=== PATIENT | male | born 1995 | race Caucasian/White ===

== ENCOUNTER 2021-03-27 14:21 | Emergency (ER) | payer OTHER, SELFPAY ==
[2021-03-27 15:00] VITALS: BP 102/60; PULSE 87; RESP 18; TEMP 37.2; O2SAT 96; BMI 22.4
--- NOTE | 2021-03-27 15:26 | ED_ITS ---
HPI - COVID General: Chief Complaint: Fever Stated Complaint: COVID +/FEVER,CHILLS,BODY ACHES Time Seen by Provider: 03/27/21 15:18 Triage information: Has fever, cough or shortness of breath . Exposure to COVID + person last 14 days History of Present Illness: HPI Narrative: Fever chills muscle aches tested positive for Covid home today. MD complaint: known COVID positive and has COVID symptoms Prior covid testing: yes, results known Prior testing date: 03/27/21 COVID 19 common symptoms: positive fever(s), chills, body aches and loss of sense of smell and/or taste; negative non-productive cough, productive cough, dyspnea, headache(s), throat pain, nasal congestion, nausea or vomiting COVID 19 other sytmptoms: negative chest pain Treatment prior to arrival: none COVID Results: No Data to Display Review of Systems Const: Reports: fever(s), chills and body aches Eyes: Denies: change in vision or blurry vision ENMT: Denies: throat pain or nasal congestion Card: Denies: chest pain or dyspnea on exertion Resp: Denies: dyspnea, productive cough or non-productive cough GI: Denies: abdominal pain, nausea or vomiting : Denies: difficulty urinating Musc: Denies: extremity pain Skin/Breast: Denies: rash Neuro: Denies: headache(s) Psych: Denies: anxiety or depression John/Lymph: Denies: easy bruising Physical Exam Const: COMMON NORMALS: no acute distress, average body habitus and patient oriented x3 HENMT: COMMON NORMALS: normocephalic HEAD & SCALP: normal to inspection and normocephalic FACE & SINUS: normal facial exam Eye: COMMON NORMALS: conjunctivae normal GENERAL EYE: appearance normal, both eyes and all related structures CONJUNCTIVA: Yes conjunctivae normal Neck/C-Spine: COMMON NORMALS: no JVD Chest: COMMONS NORMALS: normal inspection of the chest Resp: COMMON NORMALS: normal respiratory effort and clear to auscultation bilaterally AUSCULTATION: clear to auscultation bilaterally Cardio: COMMON NORMALS: no JVD, regular rate and regular rhythm RATE: regular rate RHYTHM: regular rhythm GI: COMMON NORMALS: Normal to inspection, nondistended, normoactive bowel sounds present Extremity: COMMON NORMALS: normal to inspection and full ROM Neuro: COMMON NORMALS: patient oriented x3 Course Vital Signs: Vital signs: Vital Signs Temperature 99.0 F 03/27/21 15:00 Pulse Rate 87 03/27/21 15:00 Respiratory Rate 18 03/27/21 15:00 Blood Pressure 102/60 03/27/21 15:00 Pulse Oximetry 96 03/27/21 15:00 MDM - COVID COVID Results: No Data to Display Discharge Plan Discharge Patient Disposition: Home Clinical Impression: COVID-19 Condition: Stable Prescriptions: New Decadron 6 mg tablet 6 mg PO DAILY Qty: 7 RF: 0 Discharge Orders: Discharge ED (Routine); Ordered 03/27/21 Ordered By: Steve Brandt Referrals: Ryan Caballero MD [Primary Care Provider] - Discharge Diet: Usual diet Discharge Activity: Increase activity as tolerated Patient Instructions: COVID-19 (Coronavirus Disease 2019) (ED) Activity Restrictions/Additional Instructions: Follow-up with medical provider as directed. Take medications as prescribed. Return to the ER or your medical provider if condition worsens. Please read and understand discharge instructions. If any questions ask please. Coding Level of Care Code ED [employer] for Corrine Johnson
[2021-03-27 15:45] VITALS: BP 105/65; PULSE 86; RESP 18; TEMP 37.2; O2SAT 95
[2021-03-27 15:46] VITALS: BP 105/65; PULSE 85; RESP 18; TEMP 37.2; O2SAT 95
== END 2021-03-27 15:47 | disposition home or self-care (01) ==
PROVIDERS: Emergency Provider Nurse Practitioner Family; PCP Internal Medicine
DX: U07.1 COVID-19 (principal)
CPT/HCPCS: 99283